=== PATIENT | female | born 1950 | race Caucasian/White ===

== ENCOUNTER 2019-04-03 17:58 | Emergency (ER) | payer MEDICARE, OTHER ==
[~2019-04-03] VITALS: Ht 160 cm; Wt 55.5 kg
[2019-04-03 18:48] VITALS: BP 112/70
--- NOTE | 2019-04-03 19:54 | NUR ---
PT HERE WITH C/O LEFT LEG PAIN S/P FALL SKIING EARLIER TODAY. PT STATES SHE HEARD AND FELT A POP AND THINKS ITS BROKEN.
[2019-04-03] MEDS ORDERED: IBUPROFEN 800 MG TABLET PO ONE (20:30)
[2019-04-03] MEDS ORDERED: IBUPROFEN 800 MG TABLET ONE (20:34)
--- NOTE | 2019-04-03 20:40 | NUR ---
PT MEDICATED PER ORDER.
--- NOTE | 2019-04-03 20:41 | NUR ---
TECH AT BEDSIDE FOR SPLINT.
--- NOTE | 2019-04-03 21:01 | NUR ---
REPORT GIVEN TO AQUILES LEO. CARE TRANSFERRED.
--- NOTE | 2019-04-03 21:26 | NUR ---
posterior spilnt applied to back of leg. Pt reports fits well, no pressure points and does not feel to tight. Cruthch demo compelted by You galvin.
== END 2019-04-03 21:35 | disposition home or self-care (01) ==
LOC: ED 21:19
DX: S82.401A Unspecified fracture of shaft of right fibula, initial encounter for closed fracture (principal); F17.200 Nicotine dependence, unspecified, uncomplicated; F12.10 Cannabis abuse, uncomplicated; Z72.89 Other problems related to lifestyle; W18.39XA Other fall on same level, initial encounter; Y93.73 Activity, racquet and hand sports; Y92.828 Other wilderness area as the place of occurrence of the external cause; Y99.8 Other external cause status
CPT/HCPCS: 29515; 99283